=== PATIENT | male | born 1985 | race Caucasian/White ===

== ENCOUNTER 2018-06-07 17:42 | Emergency (ER) | payer MEDICAID ==
[~2018-06-07] VITALS: Ht 182.9 cm; Wt 83.9 kg
[~2018-06-07 17:42] MED LIST: DOXY100 PO; HYDACE5 PO; OLME20
== END 2018-06-07 18:49 | disposition home or self-care (01) ==
LOC: ER 17:42
DX: M79.672 Pain in left foot (principal)
CPT/HCPCS: 73630; 99283

== ENCOUNTER 2020-07-25 18:39 | Emergency (ER) | payer SELFPAY ==
[~2020-07-25] VITALS: Ht 185.4 cm; Wt 83.9 kg
[2020-07-25] MEDS ORDERED: Percocet 5-3251 EACH PO (20:18)
[2020-07-25] MEDS ORDERED: Crutch1 EACH XX (20:26)
== END 2020-07-25 21:10 | disposition home or self-care (01) ==
LOC: ER 18:39
DX: S82.141A Displaced bicondylar fracture of right tibia, initial encounter for closed fracture (principal); F17.200 Nicotine dependence, unspecified, uncomplicated; W17.89XA Other fall from one level to another, initial encounter; Y93.31 Activity, mountain climbing, rock climbing and wall climbing; Y92.832 Beach as the place of occurrence of the external cause
CPT/HCPCS: 73562-RT; 73610; 99283-25; A9270

== ENCOUNTER 2020-07-27 11:46 | Day surgery (SDC) | payer SELFPAY ==
[~2020-07-27] VITALS: Ht 182.9 cm; Wt 79.5 kg
[~2020-07-27 11:46] MED LIST changes: +Crutch1 EACH XX; +Percocet 5-3251 EACH PO
--- NOTE | 2020-07-27 13:16 | NUR ---
INTO SDS VIA WC. History, Chart, Medications and Allergies reviewed before start of procedure.Patient confirms NPO status and agrees with scheduled surgery. Lungs clear T/O to Auscultation. Patient States Post-Procedure ride home has been arranged [facility]
[2020-07-27 13:30] LABS: BASOPHILS ABSOLUTE AUTO 0.05 K/mm3 (0.00-0.23); BASOPHILS PERCENT AUTO 1 % (0-2); EOSINOPHILS PERCENT AUTO 0 % (0-6); Hematocrit 46.4 % (37.0-53.0); Hemoglobin 16.5 g/dL (13.5-17.5); IMMATURE GRAN ABSOLUTE AUTO 0.02 K/mm3 (0.00-0.10); IMMATURE GRAN PERCENT AUTO 0 % (0-1); LYMPHOCYTES PERCENT AUTO 14 % (21-46); MONOCYTES PERCENT AUTO 19 % (4-13); Mean Corpuscular HGB 33.1 pg (26.0-34.0); Mean Corpuscular HGB Conc 35.6 g/dL (31.5-36.5); Mean Corpuscular Volume 93 fL (80-100); Mean Platelet Volume 9.7 fL (9.1-12.4); NEUTROPHILS ABSOLUTE AUTO 4.65 K/mm3 (1.96-9.15); NEUTROPHILS PERCENT AUTO 66 % (41-73); Platelet Count 141 K/mm3 (150-400); RDW Coefficient Variation 12.9 % (11.7-14.2); RDW Standard Deviation 43.9 fL (35.1-46.3); Red Blood Cell Count 4.99 M/mm3 (4.30-5.90); White Blood Cell Count 7.02 K/mm3 (4.00-11.30)
[2020-07-27 13:44] LABS: Anion Gap 8 mmol/L (6-16); Blood Urea Nitrogen 12 mg/dL (8-24); Bun/Creatinine Ratio 16.3 (12.0-20.0); CO2, Blood 27 mmol/L (21-32); Calcium, Blood 9.8 mg/dL (8.5-10.1); Chloride, Blood 100 mmol/L (98-108); Creatinine, Blood 0.74 mg/dL (0.60-1.20); Glomerular Filtration Rate >60 (60-); Glucose, Blood 96 mg/dL (70-99); Potassium, Blood 4.1 mmol/L (3.5-5.5); Sodium, Blood 135 mmol/L (136-145)
--- NOTE | 2020-07-27 13:45 | NUR ---
REPORT GIVEN TO THAO FRANZ
--- NOTE | 2020-07-27 14:59 | NUR ---
ASSUMED CARE FROM THAO JERONIMO RN. PT REPORT PROVIDED. RECEIVED VERBAL THAT COVID TEST IS NEGATIVE, WAITING FOR FAXED CONFIRMATION PER GEOFF CHARGE FRANNY RN. PT ALERT AND ORIENTED, ELEVATED RIGHT LEG, PAIN 6/10, TOLERABLE.
--- NOTE | 2020-07-27 19:39 | NUR ---
PT ARRIVED TO ROOM 213 APPROX 1914. A/O X4. REP. MILD NAUSEA AFTER DRINKING WATER; RECENTLY MED WITH ZOFRAN. PAIN 06/02 - MED WITH DILAUDED 0.5. PT RESTING COMFORTABLY AT THIS TIME. R LEG ELEVATED ON PILLOWS. CALL LIGHT IN REACH.
--- NOTE | 2020-07-28 03:43 | NUR ---
SHIFT SUMMARY PT IS A/O X4. R LEG ELEVATED ON PILLOWS WITH ICE PACK T/O SHIFT. PT TOLERATING PO INTAKE W/O NAUSEA. VOIDING USING URINAL. HAS NOT BEEN OUT OF BED BUT DOES MOVE SELF IN BED AND HAS BEEN ASSISTED PRN. PAIN MANAGED WITH PO PAIN MEDS PER ORDERS. SARABJIT WRAP TO RLE CDI, PULSES STRONG, BRISK CAP REFIL TO R FOOT. PT SLEEPING IN BED AT THIS TIME.
[2020-07-28] MEDS ORDERED: CYCL10 PO (11:54)
[2020-07-28] MEDS ORDERED: Percocet 5-3251 EACH PO (11:56)
--- NOTE | 2020-07-28 12:45 | NUR ---
PATIENT D/C'D HOME AT THIS TIME BY Ophelia TREVINO. NO ACUTE CHANGES.
== END 2020-07-28 12:46 | disposition home or self-care (01) ==
LOC: ORSCMMR 11:46 → PRE IP 12:12 → SURS 12:12 → EDSTATUS 13:15 → PRE IP 13:15 → SURS 17:48 → ORSCMMR 07-28 12:46
PROVIDERS: Orthopaedic Surgery
PROC: 0QSG04Z Reposition Right Tibia with Internal Fixation Device, Open Approach (ICD-10-PCS; principal; 2020-07-27 14:30)
DX: S82.141A Displaced bicondylar fracture of right tibia, initial encounter for closed fracture (principal); F17.210 Nicotine dependence, cigarettes, uncomplicated; W17.89XA Other fall from one level to another, initial encounter
CPT/HCPCS: 73560-RT; 80048; 85025; 97110; 97116; 97161; A9270; C1713; J0171; J0360; J0690; J0735; J1170; J1885; J2250; J2405; J2704; J2795; J3010; J7120

== ENCOUNTER 2021-06-13 16:42 | Emergency (ER) | payer OTHER ==
[~2021-06-13] VITALS: Ht 182.9 cm; Wt 83.9 kg
[~2021-06-13 16:42] MED LIST changes: +CYCL10 PO
== END 2021-06-13 19:57 | disposition home or self-care (01) ==
LOC: ER 16:42
DX: S06.9X0A Unspecified intracranial injury without loss of consciousness, initial encounter (principal); S00.83XA Contusion of other part of head, initial encounter; F17.210 Nicotine dependence, cigarettes, uncomplicated; W01.198A Fall on same level from slipping, tripping and stumbling with subsequent striking against other object, initial encounter; Y92.89 Other specified places as the place of occurrence of the external cause; Y99.0 Civilian activity done for income or pay
CPT/HCPCS: 70486; 96372; 99283-25; J1885

== ENCOUNTER 2021-06-16 11:48 | Emergency (ER) | payer OTHER ==
[~2021-06-16] VITALS: Ht 182.9 cm; Wt 83.9 kg
== END 2021-06-16 13:48 | disposition home or self-care (01) ==
LOC: ER 11:48
DX: S06.0X9A Concussion with loss of consciousness of unspecified duration, initial encounter (principal); I10 Essential (primary) hypertension; F17.200 Nicotine dependence, unspecified, uncomplicated
CPT/HCPCS: 99284

== ENCOUNTER 2021-11-06 16:08 | Inpatient (IN) | payer SELFPAY ==
[~2021-11-06] VITALS: Ht 185.4 cm; Wt 77.1 kg
[2021-11-06 16:54] LABS: BASOPHILS ABSOLUTE AUTO 0.05 K/mm3 (0.00-0.23); BASOPHILS PERCENT AUTO 0 % (0-2); EOSINOPHILS ABSOLUTE AUTO 0.02 K/mm3 (0.00-0.68); EOSINOPHILS PERCENT AUTO 0 % (0-6); Hematocrit 47.2 % (37.0-53.0); Hemoglobin 17.4 g/dL (13.5-17.5); IMMATURE GRAN ABSOLUTE AUTO 0.05 K/mm3 (0.00-0.10); IMMATURE GRAN PERCENT AUTO 0 % (0-1); LYMPHOCYTES PERCENT AUTO 11 % (21-46); MONOCYTES ABSOLUTE AUTO 1.63 K/mm3 (0.16-1.47); MONOCYTES PERCENT AUTO 12 % (4-13); Mean Corpuscular HGB 32.6 pg (26.0-34.0); Mean Corpuscular HGB Conc 36.9 g/dL (31.5-36.5); Mean Corpuscular Volume 88 fL (80-100); Mean Platelet Volume 10.6 fL (9.1-12.4); NEUTROPHILS ABSOLUTE AUTO 9.88 K/mm3 (1.96-9.15); NEUTROPHILS PERCENT AUTO 75 % (41-73); Platelet Count 187 K/mm3 (150-400); RDW Coefficient Variation 11.7 % (11.7-14.2); RDW Standard Deviation 37.7 fL (35.1-46.3); Red Blood Cell Count 5.34 M/mm3 (4.30-5.90); White Blood Cell Count 13.13 K/mm3 (4.00-11.30)
[2021-11-06 17:14] LABS: Alanine Aminotransfer (ALT/SGP 179 U/L (12-78); Albumin, Blood 4.9 g/dL (3.4-5.0); Albumin/Globulin Ratio 1.1 (0.8-1.8); Alk Phos 76 U/L (50-136); Anion Gap 13 mmol/L (6-16); Aspartate Aminotrans (AST/SGOT 195 U/L (12-37); Bilirubin, Total 1.8 mg/dL (0.1-1.0); Blood Urea Nitrogen 34 mg/dL (8-24); Bun/Creatinine Ratio 16.9 (12.0-20.0); CO2, Blood 26 mmol/L (21-32); Calcium, Blood 10.2 mg/dL (8.5-10.1); Chloride, Blood 93 mmol/L (98-108); Creatinine, Blood 2.01 mg/dL (0.60-1.20); Ethanol (Alcohol), Blood, Med <3 mg/dL; Globulin, Blood 4.3 g/dL (2.2-4.0); Glomerular Filtration Rate 38 (60-); Glucose, Blood 111 mg/dL (70-99); Potassium, Blood 3.4 mmol/L (3.5-5.5); Sodium, Blood 132 mmol/L (136-145); Total Protein, Blood 9.2 g/dL (6.4-8.2)
[2021-11-06 17:25] LABS: U Amphetamine Screen Not Detected; U Barbituate Screen Not Detected; U Benzodiazapine Screen Not Detected; U Buprenorphine Screen Not Detected; U Cannabinoids Screen Not Detected; U Cocaine Screen Not Detected; U Methadone Screen Not Detected; U Methamphetamine Screen Not Detected; U Opiates Screen Not Detected; U Oxycodone Screen Not Detected; U Phencyclidine Screen Not Detected; U Propoxyphene Screen Not Detected
[2021-11-06 18:01] LABS: International Normalized Ratio 1.04; Prothrombin Time Results 10.9 Sec (9.7-11.5)
--- NOTE | 2021-11-06 21:21 | NUR ---
ADMIT NOTE REPORT RECEIVED FROM MEDIA PLANNER / BUYER JERAMIE. PT ARRIVED TO FLOOR VIA GURNEY. PERSONAL POSSESSIONS WITH PT. PT ORIENTED TO UNIT. CALL BUTTON WITHIN REACH
[2021-11-06 22:00] LABS: Free Thyroxine 1.57 ng/dL (0.70-1.60); Magnesium, Blood 1.3 mg/dL (1.6-2.4); Triiodothyronine, Free 4.56 pg/mL (2.18-3.98)
[2021-11-06 22:01] LABS: CHOL/HDL RATIO 2.6; Cholesterol 200 mg/dL (50-200); HDL Cholesterol 76 mg/dL (>39); LDL/HDL RATIO 1.3; Low Density Lipoprotein Chol 99 mg/dL (0-110); Triglycerides 124 mg/dL (30-140); Very Low Density Lipoprot Chol 24 mg/dL (6-28)
[2021-11-06 23:59] LABS: Influenza A, PCR NEGATIVE (NEGATIVE); Influenza B, PCR NEGATIVE (NEGATIVE); Resp Syncytial Virus, PCR NEGATIVE (NEGATIVE); SARS-Cov-2 (COVID-19) PCR, MMC NEGATIVE (NEGATIVE)
--- NOTE | 2021-11-07 04:03 | NUR ---
SHIFT SUMMARY pT IS AN ED ADMIT FOR STROKE LIKE SX. ct NEGATIVE. aTEMPTING TO COLLECT URINE AND STOOL SAMPLES. pROCALCITONIN AND wbc ELEVATED. iv FLUIDS INFUSING. tELE SHOWNS NSR AT 79. COVID AND INFLUENZA TESTS NEG. pT IS FULL CODE.
[2021-11-07 06:05] LABS: BASOPHILS ABSOLUTE AUTO 0.06 K/mm3 (0.00-0.23); BASOPHILS PERCENT AUTO 1 % (0-2); EOSINOPHILS ABSOLUTE AUTO 0.16 K/mm3 (0.00-0.68); EOSINOPHILS PERCENT AUTO 2 % (0-6); Hematocrit 44.4 % (37.0-53.0); Hemoglobin 15.9 g/dL (13.5-17.5); IMMATURE GRAN ABSOLUTE AUTO 0.03 K/mm3 (0.00-0.10); IMMATURE GRAN PERCENT AUTO 0 % (0-1); LYMPHOCYTES ABSOLUTE AUTO 1.86 K/mm3 (0.84-5.20); LYMPHOCYTES PERCENT AUTO 20 % (21-46); MONOCYTES PERCENT AUTO 16 % (4-13); Mean Corpuscular HGB 32.1 pg (26.0-34.0); Mean Corpuscular HGB Conc 35.8 g/dL (31.5-36.5); Mean Corpuscular Volume 90 fL (80-100); NEUTROPHILS ABSOLUTE AUTO 5.88 K/mm3 (1.96-9.15); NEUTROPHILS PERCENT AUTO 62 % (41-73); Platelet Count 165 K/mm3 (150-400); RDW Coefficient Variation 11.9 % (11.7-14.2); RDW Standard Deviation 39.1 fL (35.1-46.3); Red Blood Cell Count 4.95 M/mm3 (4.30-5.90); White Blood Cell Count 9.49 K/mm3 (4.00-11.30)
[2021-11-07 06:26] LABS: Source, Urine Voided
[2021-11-07 06:42] LABS: Appearance, Urine Hazy (Clear); Blood, Urine 2+ (Neg); Color, Urine Amber (P-Yellow); Glucose Qualitative, Urine Neg (Neg); Ketones, Urine Neg (Neg); Leukocyte Esterase, Urine 1+ (Neg); Nitrite, Urine Neg (Neg); Protein, Urine 2+ (Neg); Specific Gravity, Urine 1.025 (1.003-1.022); Urobilinogen, Urine 1+ (Normal)
[2021-11-07 07:19] LABS: Bilirubin, Urine 1+ (Neg)
[2021-11-07 07:26] LABS: Albumin, Blood 4.1 g/dL (3.4-5.0); Albumin/Globulin Ratio 1.1 (0.8-1.8); Bilirubin, Total 1.3 mg/dL (0.1-1.0); Bun/Creatinine Ratio 26.9 (12.0-20.0); Creatinine, Blood 1.56 mg/dL (0.60-1.20); Globulin, Blood 3.9 g/dL (2.2-4.0); Potassium, Blood 3.1 mmol/L (3.5-5.5)
[2021-11-07 07:43] LABS: Hyaline Casts 50-100 /lpf (0-2)
[2021-11-07 07:45] LABS: Bacteria Mod /hpf; Squamous Epithelial Cells Rare /hpf (Few)
[2021-11-07 09:30] LABS: Campylobacter Sp Not Detected (NOT DETECT); Cryptosporidium Not Detected (NOT DETECT); E. Coli O157 Not Detected (NOT DETECT); Enteroaggregative E. coli-EAEC Not Detected (NOT DETECT); Enteropathogenic E. coli-EPEC Not Detected (NOT DETECT); Enterotoxigenic E. coli-ETEC Not Detected (NOT DETECT); Plesiomonas Shigelloides Not Detected (NOT DETECT); Salmonella Sp Not Detected (NOT DETECT); Shiga Toxin-prod E. coli-STEC Not Detected (NOT DETECT); Shigella/Enteroin E. coli-EIEC Not Detected (NOT DETECT); Vibrio Cholerae Not Detected (NOT DETECT); Vibrio Sp Not Detected (NOT DETECT); Yersinia Enterocolitica Not Detected (NOT DETECT)
[2021-11-07 09:31] LABS: Adenovirus F 40/41 Not Detected (NOT DETECT); Astrovirus Not Detected (NOT DETECT); Cyclospora Cayetanensis Not Detected (NOT DETECT); Entamoeba Histolytica Not Detected (NOT DETECT); Giardia Lamblia Not Detected (NOT DETECT); Norovirus GI/GII Not Detected (NOT DETECT); Rotavirus A Not Detected (NOT DETECT); Sapovirus Not Detected (NOT DETECT)
[2021-11-07 14:41] LABS: Anion Gap 8 mmol/L (6-16); Blood Urea Nitrogen 38 mg/dL (8-24); Bun/Creatinine Ratio 34.5 (12.0-20.0); CO2, Blood 29 mmol/L (21-32); Calcium, Blood 8.5 mg/dL (8.5-10.1); Chloride, Blood 98 mmol/L (98-108); Glomerular Filtration Rate >60 (60-); Glucose, Blood 91 mg/dL (70-99); Magnesium, Blood 1.7 mg/dL (1.6-2.4); Potassium, Blood 3.6 mmol/L (3.5-5.5); Sodium, Blood 135 mmol/L (136-145)
--- NOTE | 2021-11-07 17:19 | NUR ---
SHIFT SUMMARY- PT ALERT, ORIENTED SBA TO THE BATHROOM. CIWAS HAVE ALL BEEN LOW MOST RECENT SCORE WAS 4. BP HAS DROPPED TO 140'S ON LAST SET OF VITALS. PRN HYDRALIZINE FOR SBP GREATER THAN 150. ORDER RECIEVED FOR BP CHECKS Q2 HOUR X4 AND THEN BACK TO NORMAL PROTOCOL AFTER THAT. PT HAS HAD A HEADACHE SINCE ADMIT THAT RESOLVED WITH THE HTN. PLACED PT INTO ISOLATION THIS SHIFT FOR POSSITIVE C-DIFF SAMPLE. PT STARTED ON ORAL VANCO TODAY. PT SITTING IN BED CURRENTLY WITH THE CALL LIGHT IN REACH NO S&S OF DISTRESS NOTED AT THIS TIME WILL CTM.
--- NOTE | 2021-11-08 04:25 | NUR ---
SHIFT SUMMARY PATIENT HAD NO ACUTE CHANGES OBSERVED. AXOX 4. SBA TO BR. PIV REMAINS INTACT. MUSIC MANAGER REPORTS NSR 85. CIWA: 2-3. DENIES PAIN, SOB, AND N/V. VSS/AFEBRILE. COOPERATIVE WITH CARE. CALL LIGHT IN REACH. BED IN LOWEST POSITION. WILL CONTINUE TO MONITOR UNTIL DAY SHIFT NURSE ASSUMES CARE.
[2021-11-08 06:14] LABS: BASOPHILS ABSOLUTE AUTO 0.07 K/mm3 (0.00-0.23); BASOPHILS PERCENT AUTO 1 % (0-2); EOSINOPHILS ABSOLUTE AUTO 0.15 K/mm3 (0.00-0.68); EOSINOPHILS PERCENT AUTO 3 % (0-6); Hematocrit 40.4 % (37.0-53.0); Hemoglobin 14.2 g/dL (13.5-17.5); IMMATURE GRAN ABSOLUTE AUTO 0.01 K/mm3 (0.00-0.10); IMMATURE GRAN PERCENT AUTO 0 % (0-1); LYMPHOCYTES PERCENT AUTO 15 % (21-46); MONOCYTES ABSOLUTE AUTO 0.82 K/mm3 (0.16-1.47); MONOCYTES PERCENT AUTO 14 % (4-13); Mean Corpuscular HGB 32.5 pg (26.0-34.0); Mean Corpuscular HGB Conc 35.1 g/dL (31.5-36.5); Mean Corpuscular Volume 92 fL (80-100); Mean Platelet Volume 10.3 fL (9.1-12.4); NEUTROPHILS ABSOLUTE AUTO 3.98 K/mm3 (1.96-9.15); NEUTROPHILS PERCENT AUTO 67 % (41-73); Platelet Count 128 K/mm3 (150-400); RDW Coefficient Variation 11.8 % (11.7-14.2); RDW Standard Deviation 39.8 fL (35.1-46.3); Red Blood Cell Count 4.37 M/mm3 (4.30-5.90); White Blood Cell Count 5.93 K/mm3 (4.00-11.30)
[2021-11-08 07:35] LABS: Alanine Aminotransfer (ALT/SGP 177 U/L (12-78); Albumin, Blood 3.7 g/dL (3.4-5.0); Albumin/Globulin Ratio 1.1 (0.8-1.8); Alk Phos 61 U/L (50-136); Anion Gap 9 mmol/L (6-16); Aspartate Aminotrans (AST/SGOT 197 U/L (12-37); Bilirubin, Total 1.5 mg/dL (0.1-1.0); Blood Urea Nitrogen 31 mg/dL (8-24); Bun/Creatinine Ratio 38.3 (12.0-20.0); CO2, Blood 28 mmol/L (21-32); Calcium, Blood 9.3 mg/dL (8.5-10.1); Chloride, Blood 101 mmol/L (98-108); Creatinine, Blood 0.81 mg/dL (0.60-1.20); Globulin, Blood 3.5 g/dL (2.2-4.0); Glomerular Filtration Rate >60 (60-); Glucose, Blood 89 mg/dL (70-99); Potassium, Blood 3.8 mmol/L (3.5-5.5); Sodium, Blood 138 mmol/L (136-145); Total Protein, Blood 7.2 g/dL (6.4-8.2)
--- NOTE | 2021-11-08 07:57 | NUR ---
pt laying in bed awake a/ox3, pleasant and cooperative with care, follows commands well, denies pain, states it was hard to sleep last night, lungs are clear t/o, resp even and unlabored, no cough noted, hrr, no edema noted, ppp+1, cap refill <3sec, vs stable, afebrile, iv site to rfa is clear, flushes well, slight swelling, btx4, report voiding and reg bms, lupe, susanne, call light in reach.
[2021-11-08] MEDS ORDERED: ASPI81CH PO (11:04)
[2021-11-08] MEDS ORDERED: FOLI1 PO (11:05)
[2021-11-08] MEDS ORDERED: LISI20 PO (11:06)
[2021-11-08] MEDS ORDERED: LACT PO (11:07)
[2021-11-08] MEDS ORDERED: METO25ER PO (11:07)
[2021-11-08] MEDS ORDERED: Nicoderm Cq1 EAC1 TOP (11:07)
[2021-11-08] MEDS ORDERED: B-1100 MG PO (11:07)
[2021-11-08] MEDS ORDERED: VANCOMYCIN HCL1 G1 PO (11:08)
--- NOTE | 2021-11-08 12:19 | NUR ---
PT HAS BEEN DISCHARGED TO HOME, IV REMOVED INTACT, NEW MEDICATIONS HAVE BEEN FAXED TO [facility], WENT OVER DISCHARGE INSTRUCTIONS, HE VERBALIZED UNDERSTANDING, LEFT VIA AMBULATION, HE DIDN'T WANT A CHAIR, WITH ALL HIS BELONGINGS.
== END 2021-11-08 12:25 | disposition home or self-care (01) | DRG 872 ==
LOC: ER 16:08 → MEDS 16:09
PROVIDERS: Family Medicine; Physician Assistant; Student in an Organized Health Care Education/Training Program; ADMIT Family Medicine
PROC: HZ2ZZZZ Detoxification Services for Substance Abuse Treatment (ICD-10-PCS; principal; 2021-11-07)
PROC: 3E0234Z Introduction of Serum, Toxoid and Vaccine into Muscle, Percutaneous Approach (ICD-10-PCS; 2021-11-07)
DX: A41.9 Sepsis, unspecified organism (principal); I16.1 Hypertensive emergency; N17.9 Acute kidney failure, unspecified; E87.1 Hypo-osmolality and hyponatremia; F10.239 Alcohol dependence with withdrawal, unspecified; G45.9 Transient cerebral ischemic attack, unspecified; A04.72 Enterocolitis due to Clostridium difficile, not specified as recurrent; N39.0 Urinary tract infection, site not specified; Z23 Encounter for immunization; Z20.822 Contact with and (suspected) exposure to COVID-19; E87.6 Hypokalemia; R00.0 Tachycardia, unspecified; F17.210 Nicotine dependence, cigarettes, uncomplicated; Y90.0 Blood alcohol level of less than 20 mg/100 ml; Z71.41 Alcohol abuse counseling and surveillance of alcoholic; Z71.6 Tobacco abuse counseling; Z91.14 Patient's other noncompliance with medication regimen; Z98.890 Other specified postprocedural states
CPT/HCPCS: 0097U; 0241U; 36415; 70450; 71045; 80048; 80053; 80061; 81001; 82947; 83605; 83735; 84145; 84439; 84443; 84481; 85025; 85610; 87040; 87086; 87324; 90686; 93005; 93010; 93306; 93880; 96365; 96367; 96372; 96374; 96375; 99285-25; A9270; G0008; G0378; G0480; J0360; J0696; J1650; J2060; J3370; J3475; J7030; J7050

== ENCOUNTER 2022-11-14 08:53 | Emergency (ER) | payer SELFPAY ==
[~2022-11-14] VITALS: Ht 182.9 cm; Wt 77.1 kg
[~2022-11-14 08:53] MED LIST changes: +ASPI81CH PO; +B-1100 MG PO; +FOLI1 PO; +LACT PO; +LISI20 PO; +METO25ER PO; +Nicoderm Cq1 EAC1 TOP; +VANCOMYCIN HCL1 G1 PO
[2022-11-14 09:36] LABS: BASOPHILS ABSOLUTE AUTO 0.08 K/mm3 (0.00-0.23); BASOPHILS PERCENT AUTO 2 % (0-2); EOSINOPHILS ABSOLUTE AUTO 0.02 K/mm3 (0.00-0.68); EOSINOPHILS PERCENT AUTO 0 % (0-6); Hematocrit 42.7 % (37.0-53.0); Hemoglobin 15.5 g/dL (13.5-17.5); IMMATURE GRAN ABSOLUTE AUTO 0.01 K/mm3 (0.00-0.10); IMMATURE GRAN PERCENT AUTO 0 % (0-1); LYMPHOCYTES ABSOLUTE AUTO 1.85 K/mm3 (0.84-5.20); LYMPHOCYTES PERCENT AUTO 34 % (21-46); MONOCYTES ABSOLUTE AUTO 0.89 K/mm3 (0.16-1.47); MONOCYTES PERCENT AUTO 16 % (4-13); Mean Corpuscular HGB Conc 36.3 g/dL (31.5-36.5); Mean Corpuscular Volume 91 fL (80-100); Mean Platelet Volume 9.6 fL (9.1-12.4); NEUTROPHILS ABSOLUTE AUTO 2.63 K/mm3 (1.96-9.15); NEUTROPHILS PERCENT AUTO 48 % (41-73); Platelet Count 173 K/mm3 (150-400); RDW Coefficient Variation 12.9 % (11.7-14.2); RDW Standard Deviation 42.4 fL (35.1-46.3); Red Blood Cell Count 4.69 M/mm3 (4.30-5.90); White Blood Cell Count 5.48 K/mm3 (4.00-11.30)
[2022-11-14 09:53] LABS: Bilirubin, Total 0.3 mg/dL (0.1-1.0); Bun/Creatinine Ratio 14.6 (12.0-20.0); Calcium, Blood 8.4 mg/dL (8.5-10.1); Creatinine, Blood 0.62 mg/dL (0.60-1.20); Potassium, Blood 3.8 mmol/L (3.5-5.5)
[2022-11-14] MEDS ORDERED: Prinivil10 MG PO (14:04)
== END 2022-11-14 14:22 | disposition home or self-care (01) ==
LOC: ER 08:53
PROVIDERS: Emergency Medicine
DX: I10 Essential (primary) hypertension (principal); R07.9 Chest pain, unspecified; F17.200 Nicotine dependence, unspecified, uncomplicated; F10.90 Alcohol use, unspecified, uncomplicated
CPT/HCPCS: 36415; 70450; 71045; 71275; 80053; 83880; 84484; 85025; 85379; 93005; 93010; A9270; Q9967